=== PATIENT | female | born 1975 | race Caucasian/White ===

== ENCOUNTER 2017-10-25 08:20 | Day surgery (SDC) | payer OTHER ==
[2017-10-22 23:20] LABS: BILIRUBIN,URINE NEGATIVE (NEGATIVE); BLOOD, URINE NEGATIVE (NEGATIVE); CLARITY/URINE CLEAR (CLEAR); COLOR,URINE YELLOW (YELLOW); GLUCOSE,URINE NEGATIVE (NEGATIVE); KETONES,URINE NEGATIVE (NEGATIVE); LEUKOCYTE ESTERASE ,URINE NEGATIVE (NEGATIVE); NITRITE, URINE NEGATIVE (NEGATIVE); PROTEIN URINE NEGATIVE (NEGATIVE); UROBILINOGEN,URINE 0.2 (0.2-1.0)
[2017-10-23 12:18] LABS: BILIRUBIN,URINE NEGATIVE (NEGATIVE); CLARITY/URINE CLEAR (CLEAR); COLOR,URINE YELLOW (YELLOW); GLUCOSE,URINE NEGATIVE (NEGATIVE); KETONES,URINE NEGATIVE (NEGATIVE); LEUKOCYTE ESTERASE ,URINE NEGATIVE (NEGATIVE); NITRITE, URINE NEGATIVE (NEGATIVE); PH,URINE 5.5 (5.0-8.0); PROTEIN URINE NEGATIVE (NEGATIVE); UROBILINOGEN,URINE 0.2 (0.2-1.0)
[2017-10-23 12:23] LABS: BLOOD, URINE TRACE (NEGATIVE)
[2017-10-23 12:24] LABS: BASOPHILS # (AUTO) 0.1 K/uL (0.0-0.2); BASOPHILS % (AUTO) 0.7 % (0.0-2.0); EOSINOPHILS # (AUTO) 0.3 K/uL (0.0-0.4); EOSINOPHILS % (AUTO) 2.8 % (0.0-4.0); HEMATOCRIT 41.2 % (36-48); LYMPHOCYTES # (AUTO) 2.5 K/uL (1.0-5.5); LYMPHOCYTES % (AUTO) 23.7 % (20.5-51.5); MEAN CORPUSCULAR HEMOGLOBIN 31 pg (27-31); MEAN CORPUSCULAR HGB CONC 34 % (32-36); MEAN CORPUSCULAR VOLUME 91 fL (79.0-98.0); MONOCYTES # (AUTO) 0.8 K/uL (0.0-1.0); MONOCYTES % (AUTO) 7.2 % (1.7-9.3); NEUTROPHILS # (AUTO) 6.9 K/uL (1.8-7.7); NEUTROPHILS % (AUTO) 65.6 % (40.0-70.0); PLATELET COUNT (AUTO) 312 K/uL (130-430); RED BLOOD CELL COUNT(AUTO) 4.52 MIL/uL (4.2-6.2); RED CELL DISTRIBUTION WIDTH 12.5 % (9.0-15.0); WHITE BLOOD COUNT (AUTO) 10.6 K/uL (4.8-10.8)
[2017-10-23 12:43] LABS: BACTERIA,URINE FEW /HPF (None Seen); MUCUS,URINE 1+ /LPF (None Seen); WBC,URINE 0-3 /HPF (0-3)
[2017-10-23 12:48] LABS: CALCIUM 9.6 mg/dL (8.4-11.0); CREATININE 0.75 mg/dL (0.55-1.30)
[~2017-10-25] VITALS: Ht 157.5 cm; Wt 59.0 kg
[2017-10-25] MEDS ORDERED: LR 1,000 ML IV SCH (11:42)
[2017-10-25] MEDS ORDERED: HYDROmorphone 2 MG/ML VIAL IVP PRN ×2 (11:45)
[2017-10-25] MEDS ORDERED: HYDROmorphone 1 MG INJ. 1 MG/ML AMPUL IVP PRN (11:45)
[2017-10-25] MEDS ORDERED: MEPERIDINE HCL/PF 25 MG/ML DISP.SYRIN IVP PRN (11:45)
[2017-10-25] MEDS ORDERED: PROPOFOL 200MG/ 20ML VIAL (DIPRIVAN) IV ONE (12:00)
[2017-10-25] MEDS ORDERED: fentaNYL CITRATE 250 MCG/5 ML AMP IV ONE (12:00)
[2017-10-25] MEDS ORDERED: ROCURONIUM BROMIDE 10 MG/ML (ZEMURON) IV ONE (12:00)
[2017-10-25] MEDS ORDERED: SEVOFLURANE 15 MIN GAS INH ONE (12:00)
[2017-10-25] MEDS ORDERED: NS 1000 ML BAG IV ONE (12:00)
[2017-10-25] MEDS ORDERED: KETOROLAC TROMETHAMINE 30 MG VIAL IVP ONE (12:00)
[2017-10-25] MEDS ORDERED: OXYCODONE/ACETAMINOPHEN 5-325 TABLET PO PRN ×2 (12:00)
[2017-10-25] MEDS ORDERED: ONDANSETRON HCL 4 MG/2 ML VIAL IVP PRN (12:00)
[2017-10-25] MEDS ORDERED: DEXAMETHASONE SOD PHOSPHATE 4 MG/ML VIAL IVP ONE (12:00)
[2017-10-25] MEDS ORDERED: MIDAZOLAM HCL 5 MG/ML VIAL (VERSED) IV ONE (12:00)
[2017-10-25] MEDS ORDERED: IBUPROFEN 800 MG TABLET PO PRN (12:00)
[2017-10-25] MEDS ORDERED: ONDANSETRON HCL 4 MG/2 ML VIAL IVP ONE (12:00)
[2017-10-25 13:01] VITALS: BP_SYST 102
== END 2017-10-25 14:00 | disposition home or self-care (01) ==
LOC: SDS 08:20 → SMU 08:20 → SDS 14:00
PROVIDERS: ATTEND Obstetrics & Gynecology
DX: N92.0 Excessive and frequent menstruation with regular cycle (principal); Z90.49 Acquired absence of other specified parts of digestive tract; R87.612 Low grade squamous intraepithelial lesion on cytologic smear of cervix (LGSIL); R87.810 Cervical high risk human papillomavirus (HPV) DNA test positive; Z80.3 Family history of malignant neoplasm of breast; F17.210 Nicotine dependence, cigarettes, uncomplicated
CPT/HCPCS: 36415; 58563; 80048; 81000; 81003; 84702; 85025; 86886; 86900; 86901; 88300; J1100; J1885; J2250; J2405; J2704; J3010; J7030; J7120; 88305